=== PATIENT | male | born 1990 | race African-American/Black ===

== ENCOUNTER 2022-07-12 10:20 | Emergency (ER) | payer OTHER ==
[~2022-07-12] VITALS: Ht 190.5 cm; Wt 96.0 kg
[2022-07-12 15:52] VITALS: BP 137/86
== END 2022-07-12 15:54 | disposition home or self-care (01) ==
LOC: ER 10:20
DX: B34.9 Viral infection, unspecified (principal)
CPT/HCPCS: 71045; 93005; 99283

== ENCOUNTER 2022-07-16 12:06 | Emergency (ER) | payer OTHER ==
[~2022-07-16] VITALS: Ht 188 cm; Wt 98.0 kg
[2022-07-16 12:26] VITALS: BP 136/100
== END 2022-07-16 15:23 | disposition home or self-care (01) ==
LOC: ER 12:09
DX: R05.9 Cough, unspecified (principal); F41.9 Anxiety disorder, unspecified
CPT/HCPCS: 99281